=== PATIENT | male | born 1950 | race Caucasian/White ===

== ENCOUNTER 2017-09-17 10:42 | Emergency (ER) | payer MEDICARE ==
[2017-09-17] MEDS: DIPHTH,PERTUSS(ACELL),TET TOX 0.5 ML DISP.SYRIN. VAX IM (11:41)
[2017-09-17] MEDS: HYDROcodone/APAP 5/325MG 1 TAB TABLET PO (12:06)
== END 2017-09-17 12:40 | disposition home or self-care (01) ==
LOC: ER 12:40
DX: S42.251A Displaced fracture of greater tuberosity of right humerus, initial encounter for closed fracture (principal); I10 Essential (primary) hypertension; F41.9 Anxiety disorder, unspecified; K21.9 Gastro-esophageal reflux disease without esophagitis; Z90.49 Acquired absence of other specified parts of digestive tract; Z95.1 Presence of aortocoronary bypass graft; W18.39XA Other fall on same level, initial encounter; Y93.02 Activity, running; Y99.8 Other external cause status; Y92.89 Other specified places as the place of occurrence of the external cause
CPT/HCPCS: 73030; 90471; 90715; 99284-25